=== PATIENT | male | born 1985 | race Two or more races ===

== ENCOUNTER 2016-05-07 13:19 | Emergency (ER) | payer OTHER ==
[~2016-05-07] VITALS: Ht 162.6 cm; Wt 68.0 kg
[2016-05-07] MEDS ORDERED: NKM (13:42)
[2016-05-07 13:47] VITALS: BP 126/83
[2016-05-07] MEDS ORDERED: traMADol 50mg tab ORAL ONE (15:45)
[2016-05-07 16:15] LABS: APPEARANCE,URINE CLEAR; KETONES,URINE 1+ (NEGATIVE); LEUKOCYTE ESTERASE ,URINE 1+ (NEGATIVE); NITRITE,URINE NEGATIVE (NEGATIVE); PH,URINE 6 (4.5-8.0); PROTEIN,URINE 3+ (NEGATIVE); UROBILINOGEN,URINE 4 MG/DL (0.0-1.0)
[2016-05-07] MEDS ORDERED: Lidocaine 1% MPF 10mg/ml 5ml ONE (16:17)
[2016-05-07 16:30] LABS: BACTERIA,URINE MODERATE /HPF
[2016-05-07] MEDS ORDERED: VIBRAMYCIN100 MG ORAL (18:10)
[2016-05-07] MEDS ORDERED: Azithromycin 250mg tab ORAL ONE (18:15)
[2016-05-07 18:36] VITALS: BP 126/83
--- NOTE | 2016-05-07 22:20 | Emergency Room Report ---
History of Present Illness General Chief Complaint: Male Urogenital Problems Present Illness HPI The patient is a 31-year-old male presenting with right testicular pain. The patient states that he lifted a heavy object at work 7 days prior and noticed the pain. Pain is described as a 9/10 dull ache and is worse with touch. Pain does not radiate. Patient denies any prior medical history that may be causing this pain. Patient denies history of hernia. The patient denies any other symptoms including dysuria, hematuria, penile discharge, rash, fever, chills, abdominal pain, flank pain Allergies: Coded Allergies: No Known Allergies (Unverified , 05/07/16) Patient History Past Medical History: see triage record Pertinent Family History: none Reviewed Nursing Documentation: PMH: Agreed, PSxH: Agreed Nursing Documentation-PMH Past Medical History: No Stated History Review of Systems All Other Systems: negative except mentioned in HPI Physical Exam Vital Signs Date Time Temp Pulse Resp B/P Pulse Ox O2 Delivery O2 Flow Rate FiO2 05/07/16 13:37 97.5 115 20 126/83 97 Sp02 EP Interpretation: reviewed, normal General Appearance: no apparent distress, alert, GCS 15, non-toxic Head: normocephalic, atraumatic Eyes: bilateral eye PERRL, bilateral eye normal inspection ENT: hearing grossly normal, normal pharynx, no angioedema, normal voice Gastrointestinal: normal bowel sounds, non tender, soft, no mass, non-distended , no guarding, no rebound Genitourinary: penis normal, other - TTP over R epididymis Musculoskeletal: back normal, gait/station normal, normal range of motion, non- tender Neurologic: alert, oriented x3, responsive, motor strength/tone normal, sensory intact, speech normal Psychiatric: judgement/insight normal, memory normal, mood/affect normal, no suicidal/homicidal ideation Skin: normal color, no rash, warm/dry, well hydrated Lymphatic: no adenopathy Medical Decision Making PA Attestation Dr. Bell is my supervising physician. Patient management was discussed with my supervising physician Diagnostic Impression: Primary Impression: Epididymitis ER Course The patient is a 31-year-old male presenting with right testicular pain Differential diagnosis considered: Epididymitis, orchitis, urethritis, urinary tract infection, STD PE: afebrile. NAD Scrotum: There is tenderness to palpation over the right epididymis. Normal external appearance. No rash. No penile discharge. No tenderness to palpation the penis. No CVA tenderness UA: There is a moderate amount of bacteria with 1+ leukocyte esterase. 3+ occult blood Testicular US: There is bilateral varicocele. Right epididymis is enlarged with a cyst. Mild bilateral hydrocele. Otherwise unremarkable The patient was informed of all of these results and will followup with PMD. Patient is given Rocephin IM and azithromycin in the emergency department and will be discharged with a prescription for doxycycline. ER precautions are given Laboratory Tests Test 05/07/16 15:30 Urine Color Yellow Urine Appearance Clear Urine pH 6 (4.5-8.0) Urine Specific [place] 1.015 (1.005-1.035) Urine Protein 3+ (NEGATIVE) H Urine Glucose (UA) Negative (NEGATIVE) Urine Ketones 1+ (NEGATIVE) H Urine Occult Blood 3+ (NEGATIVE) H Urine Nitrite Negative (NEGATIVE) Urine Bilirubin Negative (NEGATIVE) Urine Urobilinogen 4 MG/DL (0.0-1.0) H Urine Leukocyte Esterase 1+ (NEGATIVE) H Urine RBC 5-10 /HPF (0 - 0) H Urine WBC 2-4 /HPF (0 - 0) Urine Squamous Epithelial Cells None /LPF (NONE/OCC) Urine Transitional Epithelial Cells /LPF (NONE) Urine Bacteria Moderate /HPF (NONE) H Lab Results Impression There is a moderate amount of bacteria with 1+ leukocyte esterase. 3+ occult blood CT/MRI/US Diagnostic Results CT/MRI/US Diagnostic Results : Imaging Test Ordered: testicular US Impression There is bilateral varicocele. Right epididymis is enlarged with a cyst. Mild bilateral hydrocele. Otherwise unremarkable Last Vital Signs Date Time Temp Pulse Resp B/P Pulse Ox O2 Delivery O2 Flow Rate FiO2 05/07/16 18:36 97.5 20 126/83 97 05/07/16 13:37 115 Status: improved Disposition: HOME, SELF-CARE Condition: Improved Scripts Doxycycline Hyclate* (VIBRAMYCIN*) 100 Mg Capsule 100 MG ORAL EVERY 12 HOURS, #14 CAP 0 Refills Prov: YOLY MEJIA 05/07/16 Patient Instructions: Epididymitis Additional Instructions: I discussed my findings with the patient. All questions and concerns have been answered. Treatment and medication compliance have been addressed. I advised the patient that they need to follow up with PMD in 3-5 days. Return to ED if symptoms worsen, new symptoms arise, or if needed for any reason. Patient verbalized understanding of discharge instructions. YOLY MEJIA May 07, 2016 22:20
--- NOTE | 2016-05-08 11:04 | Diagnostic Imaging Report ---
Indication:Scrotal pain Technique: Real time grayscale and duplex Doppler imaging of the scrotum performed. Comparison: None Findings: The size, contour, and echogenicitiy of the testis appear normal bilaterally. There is no mass within the scrotum. There is good doppler evidence of blood flow within both testes. The right epididymis is somewhat enlarged. Right testis is 4.4 x 2.5 x 3.3 CM. Left testis 3.9 x 2.3 x 3.7 CM. There are small bilateral hydroceles. Bilateral varicoceles are present as well. Impression: No evidence of testicular mass or torsion Possible right epididymitis. Bilateral hydroceles. Bilateral varicoceles.
== END 2016-05-07 18:37 | disposition home or self-care (01) ==
LOC: EMR 15:53
DX: N45.1 Epididymitis (principal)
CPT/HCPCS: 76870; 81003; 87086; 96372; 99284; J0696